=== PATIENT | female | born 1985 | race Caucasian/White ===

== ENCOUNTER 2020-11-23 15:15 | Outpatient (CLI) | payer OTHER | END 2020-11-23 15:16 | disposition home or self-care (01) | LOC: BICRAD 15:15 | DX: M62.830 Muscle spasm of back (principal); M43.12 Spondylolisthesis, cervical region | CPT/HCPCS: 72040 ==

== ENCOUNTER 2023-01-12 09:53 | Outpatient (CLI) | payer BC, OTHER | END 2023-01-12 09:54 | disposition home or self-care (01) | LOC: BICRAD 09:53 | PROVIDERS: ATTEND Family Medicine | DX: M25.572 Pain in left ankle and joints of left foot (principal); S92.002A Unspecified fracture of left calcaneus, initial encounter for closed fracture; S82.892A Other fracture of left lower leg, initial encounter for closed fracture ==